=== PATIENT | female | born 1990 | race Caucasian/White ===

== ENCOUNTER 2017-06-19 18:55 | Emergency (ER) | payer MEDICAID | END 2017-06-19 19:40 | disposition home or self-care (01) | LOC: D.ER 18:55 | DX: K02.9 Dental caries, unspecified (principal); K08.89 Other specified disorders of teeth and supporting structures; S02.5XXA Fracture of tooth (traumatic), initial encounter for closed fracture; X58.XXXA Exposure to other specified factors, initial encounter; Y93.89 Activity, other specified; Y92.012 Bathroom of single-family (private) house as the place of occurrence of the external cause ==

== ENCOUNTER 2017-10-14 12:56 | Emergency (ER) | payer MEDICAID ==
[2017-10-14 13:47] LABS: APPEARANCE HAZY (CLEAR); COLOR ORANGE (YELLOW)
[2017-10-14 13:48] LABS: BACTERIA FEW /hpf (NONE SEEN); EPITHELIAL CELLS 0-5 /hpf (0-5); WHITE CELLS - URINE RARE /hpf (0-5)
== END 2017-10-14 15:55 | disposition home or self-care (01) ==
LOC: D.ER 12:56
PROVIDERS: Emergency Medicine
DX: R30.0 Dysuria (principal); F17.200 Nicotine dependence, unspecified, uncomplicated